=== PATIENT | male | born 1980 ===

== ENCOUNTER → 2021-05-21 | Day surgery (SDC) | payer OTHER ==
[~2021-05-21] MED LIST: NEURONTIN600 M1 PO; PERCOCET 5-3251 EACH PO; POLY119PG PO
== END | disposition home or self-care (01) ==
LOC: ADM 05-16 09:15 → CIR.AMB 06:47
PROVIDERS: ATTEND Surgery
DX: K42.9 Umbilical hernia without obstruction or gangrene (principal); Z20.822 Contact with and (suspected) exposure to COVID-19